=== PATIENT | female | born 1995 | race Hispanic/Latino ===

== ENCOUNTER 2017-11-02 02:14 | Emergency (ER) | payer SELFPAY ==
[2017-11-02] MEDS ORDERED: DEXAMETHASONE SOD PHOSPHATE 4 MG/ML 5ML VIAL ONE (02:33)
[2017-11-02] MEDS ORDERED: LIDOCAINE HCL 1% 20 ML VIAL ONE (02:33)
[2017-11-02] MEDS ORDERED: CEFTRIAXONE SODIUM 1 GM ONE (02:33)
== END 2017-11-02 03:02 | disposition home or self-care (01) ==
LOC: EDH 02:14
DX: L03.115 Cellulitis of right lower limb (principal); Z72.0 Tobacco use
CPT/HCPCS: 96372 ×2; 99284; J0696; J1100

== ENCOUNTER → 2018-03-05 | Outpatient (CLI) | payer BC, SELFPAY ==
[~2018-03-05] MED LIST: ISOVUE-370 50ML VIAL IV ONE
== END | disposition home or self-care (01) ==
LOC: RAH 14:35
PROVIDERS: ATTEND Nurse Practitioner Family
DX: N88.8 Other specified noninflammatory disorders of cervix uteri (principal); R22.2 Localized swelling, mass and lump, trunk
CPT/HCPCS: 70492; Q9967

== ENCOUNTER 2018-06-30 15:28 | Emergency (ER) | payer BC, MEDICAID ==
[2018-06-30 16:16] LABS: APPEARANCE,URINE SL CLOUDY (CLEAR); BILIRUBIN,URINE NEGATIVE (NEGATIVE); COLOR,URINE YELLOW (YELLOW); GLUCOSE, URINE (UA) NEGATIVE (NEGATIVE); KETONES,URINE NEGATIVE (NEGATIVE); LEUKOCYTE ESTERASE ,URINE SMALL (NEGATIVE); NITRATE,URINE POSITIVE (NEGATIVE); OCCULT BLOOD,URINE LARGE (NEGATIVE); PH,URINE 6.5 (5.0-8.0); PROTEIN,URINE TRACE (NEGATIVE); UROBILINOGEN,URINE 0.2 mg/dL (0.2-1.0)
[2018-06-30 16:19] LABS: BASOPHILS % (AUTO) 0.5 % (0.0-5.0); EOSINOPHILS % (AUTO) 0.2 % (0.0-8.0); HEMATOCRIT 35.1 % (36-48); LYMPHOCYTES % (AUTO) 19.6 % (21.0-51.0); MEAN CORPUSCULAR HEMOGLOBIN 30.9 pg (27.0-33.0); MEAN CORPUSCULAR HGB CONC 34.4 g/dL (32.0-36.0); MEAN CORPUSCULAR VOLUME 89.8 fL (79-99); NEUTROPHILS % (AUTO) 72.7 % (40.0-77.0); PLATELET COUNT (AUTO) 174 K/uL (130-400); RED BLOOD CELL COUNT(AUTO) 3.91 MIL/uL (4.00-5.50); RED CELL DISTRIBUTION WIDTH 14.7 % (11.0-15.5); WHITE BLOOD COUNT (AUTO) 9.7 K/uL (4.8-10.8)
[2018-06-30 16:28] LABS: BACTERIA,URINE Moderate /HPF (None Seen); SQUAMOUS EPITHELIAL CELL,UR Few /HPF (0-2)
[2018-06-30 16:59] LABS: CREATININE 0.6 mg/dL (0.5-1.5); POTASSIUM 3.7 mmol/L (3.5-5.1)
[2018-06-30 17:03] LABS: ALBUMIN 3.1 g/dL (3.5-5.0); BILIRUBIN,TOTAL 0.2 mg/dL (0.2-1.0); TOTAL PROTEIN, SERUM 7.3 g/dL (6.0-8.3)
[2018-06-30] MEDS ORDERED: CEFTRIAXONE SODIUM 1 GM ONE (17:36)
[2018-06-30] MEDS ORDERED: SODIUM CHLORIDE 0.9% 50 ML IV ONE (17:36)
== END 2018-06-30 18:45 | disposition home or self-care (01) ==
LOC: EDH 15:28
DX: O23.42 Unspecified infection of urinary tract in pregnancy, second trimester (principal); Z3A.16 16 weeks gestation of pregnancy
CPT/HCPCS: 36415; 76805; 80053; 81001; 83690; 85025; 87077; 87088; 87186; 96374; 99285; J0696

== ENCOUNTER 2019-01-26 16:31 | Emergency (ER) | payer BC, MEDICAID ==
[~2019-01-26 16:31] MED LIST changes: -ISOVUE-370 50ML VIAL IV ONE; +PREN-94 PO
[2019-01-26] MEDS ORDERED: HYDROCODONE/ACETAMINOPHEN 5/325 MG TAB ONE (16:58)
[2019-01-26 17:15] LABS: BASOPHILS % (AUTO) 0.9 % (0.0-5.0); EOSINOPHILS % (AUTO) 0.7 % (0.0-8.0); HEMATOCRIT 34.7 % (36-48); LYMPHOCYTES % (AUTO) 28.3 % (21.0-51.0); MEAN CORPUSCULAR HEMOGLOBIN 25.1 pg (27.0-33.0); MEAN CORPUSCULAR HGB CONC 32.8 g/dL (32.0-36.0); MEAN CORPUSCULAR VOLUME 76.7 fL (79-99); NEUTROPHILS % (AUTO) 63.1 % (40.0-77.0); PLATELET COUNT (AUTO) 365 K/uL (130-400); RED BLOOD CELL COUNT(AUTO) 4.52 MIL/uL (4.00-5.50); RED CELL DISTRIBUTION WIDTH 18.6 % (11.0-15.5); WHITE BLOOD COUNT (AUTO) 5.6 K/uL (4.8-10.8)
[2019-01-26 17:29] LABS: CREATININE 0.7 mg/dL (0.5-1.5); POTASSIUM 3.9 mmol/L (3.5-5.1)
[2019-01-26 17:40] LABS: BILIRUBIN,TOTAL 0.3 mg/dL (0.2-1.0); TOTAL PROTEIN, SERUM 8.5 g/dL (6.0-8.3)
[2019-01-26 18:38] LABS: INR 0.97 (0.85-1.15); PARTIAL THROMBOPLASTIN TIME 28.9 SEC (26.3-35.5); PROTHROMBIN TIME 10.2 SEC (9.6-11.6)
[2019-01-26] MEDS ORDERED: IOHEXOL-350 50ML VIAL IV ONE ×2 (18:39→19:23)
[2019-01-26] MEDS ORDERED: MORPHINE SULFATE 4 MG/1ML SYG ONE (18:50)
[2019-01-26] MEDS ORDERED: ONDANSETRON HCL 4 MG/2 ML VIAL ONE (18:50)
[2019-01-26] MEDS ORDERED: KETOROLAC TROMETHAMINE 30MG/ML ONE (21:07)
== END 2019-01-26 21:59 | disposition home or self-care (01) ==
LOC: EDH 16:31
DX: R22.1 Localized swelling, mass and lump, neck (principal); M25.512 Pain in left shoulder
CPT/HCPCS: 36415; 70492; 80053; 84702; 85025; 85610; 85730; 96374; 96375; 99285; J1885; J2270; J2405; Q9967; 96361

== ENCOUNTER 2020-10-30 14:31 | Emergency (ER) | payer BC, MEDICAID ==
[2020-10-30] MEDS ORDERED: ACETAMINOPHEN 325 MG TAB ONE (14:53)
[2020-10-30] MEDS ORDERED: SODIUM CHLORIDE 0.9% 1000ML 1,000 ML IV ONE (14:53)
[2020-10-30 15:07] LABS: BASOPHILS % (AUTO) 0.3 % (0.0-5.0); EOSINOPHILS % (AUTO) 0.1 % (0.0-8.0); HEMATOCRIT 42.5 % (36-48); LYMPHOCYTES % (AUTO) 16.8 % (21.0-51.0); MEAN CORPUSCULAR HGB CONC 35.1 g/dL (32.0-36.0); MONOCYTES % (AUTO) 4.1 % (3.0-13.0); NEUTROPHILS % (AUTO) 78.4 % (40.0-77.0); PLATELET COUNT (AUTO) 244 K/uL (130-400); RED BLOOD CELL COUNT(AUTO) 4.52 MIL/uL (4.00-5.50); RED CELL DISTRIBUTION WIDTH 13.3 % (11.0-15.5); WHITE BLOOD COUNT (AUTO) 7.5 K/uL (4.8-10.8)
[2020-10-30 15:18] LABS: APPEARANCE,URINE Cloudy (CLEAR); BILIRUBIN,URINE Negative (NEGATIVE); COLOR,URINE Dark Yellow (YELLOW); GLUCOSE, URINE (UA) Negative (NEGATIVE); KETONES,URINE >=80 mg/dL (NEGATIVE); LEUKOCYTE ESTERASE ,URINE Trace (NEGATIVE); NITRATE,URINE Negative (NEGATIVE); OCCULT BLOOD,URINE Small (NEGATIVE); PH,URINE 5.5 (5.0-8.0); PROTEIN,URINE POS 2+ mg/dL (NEGATIVE)
[2020-10-30 15:19] LABS: CREATININE 0.9 mg/dL (0.5-1.5); POTASSIUM 3.9 mmol/L (3.5-5.1)
[2020-10-30 15:21] LABS: INR 1.06 (0.85-1.15); PROTHROMBIN TIME 11.5 SEC (9.6-11.6)
[2020-10-30 15:22] LABS: PARTIAL THROMBOPLASTIN TIME 24.8 SEC (26.3-35.5)
[2020-10-30 15:23] LABS: HCG,QUAL RESULT NEGATIVE (NEGATIVE)
[2020-10-30 15:29] LABS: ALBUMIN 4.4 g/dL (3.5-5.0); BILIRUBIN,TOTAL 0.5 mg/dL (0.2-1.0); TOTAL PROTEIN, SERUM 8.8 g/dL (6.0-8.3)
[2020-10-30 15:39] LABS: AMPHET/METH SCREEN,URINE NEGATIVE (NEGATIVE); BARBITURATE SCREEN, URINE NEGATIVE (NEGATIVE); BENZODIAZEPINES SCREEN,URINE POSITIVE (NEGATIVE); CANNABINOID SCREEN,URINE NEGATIVE (NEGATIVE); COCAINE SCREEN,URINE POSITIVE (NEGATIVE); OPIATE SCREEN,URINE NEGATIVE (NEGATIVE); PHENCYCLIDINE SCREEN,URINE NEGATIVE (NEGATIVE)
[2020-10-30 16:04] LABS: BACTERIA,URINE Few /HPF (None Seen); MUCUS,URINE Many LPF (None Seen); SQUAMOUS EPITHELIAL CELL,UR Moderate /HPF (0-2)
== END 2020-10-30 16:34 | disposition home or self-care (01) ==
LOC: EDH 14:31
DX: G40.89 Other seizures (principal); F14.10 Cocaine abuse, uncomplicated; T42.4X6A Underdosing of benzodiazepines, initial encounter; Y92.89 Other specified places as the place of occurrence of the external cause
CPT/HCPCS: 36415; 70450; 71045; 80053; 80305; 81001; 81025; 82550; 84484; 84702; 85025; 85610; 85730; 93005; 96360; 99285; J7030

== ENCOUNTER 2021-08-18 15:58 | Emergency (ER) | payer BC, MEDICAID ==
[~2021-08-18] VITALS: Ht 154.9 cm; Wt 61.2 kg
[2021-08-18 15:59] VITALS: BP 156/86
[2021-08-18] MEDS ORDERED: TRAM50TA4 PO (17:30)
[2021-08-18] MEDS ORDERED: KETOROLAC 30MG VIAL (30MG/ML) IM SCH (17:30)
[2021-08-18] MEDS ORDERED: HYDROCODONE/ACETAMINOPHEN 5/325 MG TAB PO SCH (17:30)
== END 2021-08-18 17:57 | disposition home or self-care (01) ==
LOC: EDH 15:58
DX: R22.1 Localized swelling, mass and lump, neck (principal); Z79.1 Long term (current) use of non-steroidal anti-inflammatories (NSAID)
CPT/HCPCS: 96372; 99284; J1885

== ENCOUNTER 2023-10-29 15:55 | Observation (INO) | payer BC, MEDICAID ==
[~2023-10-29] VITALS: Ht 154.9 cm; Wt 72.6 kg
[~2023-10-29 15:55] MED LIST changes: +TRAM50TA4 PO
[2023-10-29 16:09] VITALS: BP 118/65; PULSE 90; RESP 18
[2023-10-29 16:34] LABS: APPEARANCE,URINE CLOUDY (CLEAR); BILIRUBIN,URINE NEGATIVE (NEGATIVE); COLOR,URINE LIGHT-YELLOW (YELLOW); GLUCOSE, URINE (UA) NEGATIVE (NEGATIVE); KETONES,URINE NEGATIVE (NEGATIVE); LEUKOCYTE ESTERASE ,URINE NEGATIVE Leu/uL (NEGATIVE); NITRATE,URINE NEGATIVE (NEGATIVE); OCCULT BLOOD,URINE NEGATIVE (NEGATIVE); PROTEIN,URINE NEGATIVE (NEGATIVE); UROBILINOGEN,URINE 0.2 mg/dL (0.2-1.0)
[2023-10-29 16:37] LABS: ADD UA MICROSCOPIC YES
[2023-10-29 16:38] LABS: BACTERIA,URINE FEW /HPF (None Seen); MUCUS,URINE RARE LPF (None Seen); OTHER CASTS, URINE 1 /LPF (None Seen); RBC,URINE 0-1 /HPF (0-1); SQUAMOUS EPITHELIAL CELL,UR MOD /HPF (0-2); WBC,URINE 0-1 /HPF (0-1)
== END 2023-10-29 17:15 | disposition home or self-care (01) ==
LOC: EDH 15:55 → LDH 15:56
PROVIDERS: ADMIT Obstetrics & Gynecology; ATTEND Obstetrics & Gynecology
DX: O26.893 Other specified pregnancy related conditions, third trimester (principal); R10.2 Pelvic and perineal pain; Z3A.32 32 weeks gestation of pregnancy
CPT/HCPCS: 81001; G0379; G0378